=== PATIENT | female | born 1945 | race Caucasian/White ===

== ENCOUNTER 2022-03-17 15:53 | Emergency (ER) | payer OTHER ==
[2022-03-17 16:18] VITALS: TEMP 98.4; BMI 23.9
[2022-03-17 16:47] VITALS: BP 181/89; PULSE 66; RESP 20
== END 2022-03-17 18:54 | disposition home or self-care (01) ==
LOC: JER 15:53
DX: R41.82 Altered mental status, unspecified (principal)
CPT/HCPCS: 82962; 99283-25